=== PATIENT | male | born 1945 | race Caucasian/White ===

== ENCOUNTER 2020-05-12 13:18 | Emergency (ER) | payer MEDICARE, OTHER, SELFPAY ==
[2020-05-12] VITALS (14 sets, daily range): BP systolic 89–180; BP diastolic 58–118; PULSE 79–90; RESP 15–24; TEMP 36.5–37.2; O2SAT 83–98; BMI 36.8
--- NOTE | 2020-05-12 13:35 | XR_ITS ---
PROCEDURE: XR CHEST PORTABLE CLINICAL HISTORY: chf COMPARISON: No exams were available for comparison FINDINGS: The lung smith are well expanded. There is relative radiolucency right upper lung field when compared to the left upper lung field which may be due to bullous change. There is mild or borderline generalized cardiomegaly. There is prominence of the upper lobe vessels left lung. There is a somewhat hazy opacity at the right lung base which could be small amount of pleural fluid ascending in the major fissure. IMPRESSION: Borderline cardiomegaly with prominence of the upper lobe vessels left lung but curious bolus change versus hypoplasia of the right sided pulmonary vascularity. These findings could be due to early failure however consider follow-up CT scan chest in view the curious radiolucency and significant difference in the vascularity right lung versus left Dictated by: Dr. Dick Pérez MD 05/12/2020 14:14 Dr. Dick Pérez MD in [place] 05/12/2020 14:14
--- NOTE | 2020-05-12 13:36 | ECG_ITS ---
APPROVED REPORT Exam: Resting ECG HR:87 bpm ECG Measurements Heart Rate 87 AXES NE 190 P 87 QRSd 90 QRS 58 QT 406 T 47 QTc 488 Conclusion Sinus rhythm with fusion complexes Nonspecific ST and T wave abnormality Prolonged QT Abnormal ECG Electronically signed by : Bryn Varela, 05/12/2020 19:46:06
--- NOTE | 2020-05-12 13:37 | HMH.EDGENADL ---
ED Disposition Clinical Impression: Gallstone pancreatitis CHF exacerbation Qualifiers: Heart failure type: unspecified Qualified Code(s): I50.9 - Heart failure, unspecified Disposition: Xfer Short-Term Hosp Condition on Discharge: Good Referrals: Estrella Sandoval APRN [Primary Care Provider] - - Critical Care Critical Care Time: No Attestation: On 05/12/20, the high probability of a clinically significant, sudden or life threatening deterioration of the following system(s) required my full and direct attention, intervention and personal management. The time I documented below is in addition to time spent performing reported procedures but includes the following listed in this critical care notation. Medical Decision Making - Medical Records Medical records reviewed: Yes: I reviewed the patient's medical records. - Sarath Inquiry Pt receiving controlled substance: No Vital Signs: 05/12/20 13:31 05/12/20 13:57 05/12/20 14:19 Temperature 98.9 F Temperature Source Oral Pulse Rate [Right Radial] 87 85 85 Respiratory Rate 24 Blood Pressure [Right Arm] 162/95 H 119/90 145/87 H Blood Pressure Mean [Right Arm] 117 99 106 Blood Pressure Source [Right Arm] Automatic Cuff Automatic Cuff Blood Pressure Position [Right Arm] Sitting Sitting 02 Sat by Pulse Oximetry 83 L 92 L 96 Oxygen Delivery Method Room Air Room Air Oxygen Flow Rate (LPM) 05/12/20 14:47 05/12/20 15:00 05/12/20 15:30 Temperature Temperature Source Pulse Rate [Right Radial] 89 86 90 Respiratory Rate 23 22 Blood Pressure [Right Arm] 145/87 H 131/83 140/118 H Blood Pressure Mean [Right Arm] 106 99 125 Blood Pressure Source [Right Arm] Automatic Cuff Automatic Cuff Automatic Cuff Blood Pressure Position [Right Arm] Sitting Sitting Sitting 02 Sat by Pulse Oximetry 96 95 94 L Oxygen Delivery Method Nasal Cannula Room Air Room Air Oxygen Flow Rate (LPM) 2 05/12/20 16:26 05/12/20 16:30 05/12/20 17:00 Temperature Temperature Source Pulse Rate [Right Radial] 88 86 83 Respiratory Rate Blood Pressure [Right Arm] 180/85 H 180/85 H 138/83 Blood Pressure Mean [Right Arm] 116 116 101 Blood Pressure Source [Right Arm] Automatic Cuff Automatic Cuff Automatic Cuff Blood Pressure Position [Right Arm] Sitting Sitting Sitting 02 Sat by Pulse Oximetry 92 L 95 98 Oxygen Delivery Method Room Air Room Air Room Air Oxygen Flow Rate (LPM) 05/12/20 17:30 05/12/20 18:00 Temperature Temperature Source Pulse Rate [Right Radial] 84 84 Respiratory Rate Blood Pressure [Right Arm] 95/73 L 101/65 L Blood Pressure Mean [Right Arm] 80 77 Blood Pressure Source [Right Arm] Automatic Cuff Automatic Cuff Blood Pressure Position [Right Arm] Sitting Sitting 02 Sat by Pulse Oximetry 97 95 Oxygen Delivery Method CPAP CPAP Oxygen Flow Rate (LPM) - Lab Data Lab results reviewed: Yes: I reviewed the patient's lab results. Lab Results 05/12/20 13:30: WBC 15.1 H, RBC 5.98, Hgb 19.2 H*, Hct 59.0 H, MCV 99.2 H, MCH 32.1 H, MCHC 32.4, RDW 13.9, Plt Count 194, MPV 7.9, Neut % (Auto) 92.6 H, Lymph % (Auto) 3.7 L, [place] % (Auto) 2.8, Eos % (Auto) 0.7, Baso % (Auto) 0.1, Neut # (Auto) 14.0 H, Lymph # (Auto) 0.6 L, [place] # (Auto) 0.4, Eos # (Auto) 0.1, Baso # (Auto) 0.0, Total Counted 100, Neutrophils % (Manual) 90 H, Band Neutrophils % 3.0, Lymphocytes % (Manual) 6 L, Monocytes % (Manual) 1 L, Platelet Estimate Normal, RBC Morphology Normal 05/12/20 13:30: Sodium 141, Potassium 3.8, Chloride 98, Carbon Dioxide 33 H, Anion Gap 13.8, BUN 19, Creatinine 1.40 H, Estimated Creat Clear 72, Estimated GFR 50 L, Est GFR ( Amer) 60, Glucose 111 H, Calcium 8.8, Magnesium 2.1, Total Bilirubin 8.5 H, AST 264 H, ALT 166 H, Alkaline Phosphatase 208 H, Troponin I < 0.01, NT-Pro-B Natriuret Pep 258 H, Total Protein 8.6 H, Albumin 4.4, Globulin 4.2 H, Albumin/Globulin Ratio 1.0 L 05/12/20 13:30: PT 12.7 H, INR 1.16 H, APTT 26.7 05/12/20 13:33: SARS-CoV-2 IgG Ab
--- NOTE | 2020-05-12 13:38 | PC.NURSE ---
Respiratory at bedside
[2020-05-12 13:48] LABS: ABG Base Excess -0.4 mmol/L (-2.4-2.3); ABG Oxygen Saturation 93 % (90-100); ABG PH 7.43 mmol/L (7.35-7.45); ABG PO2 60.4 mmhg (80-100); ABG TCO2 25.1 mmhg (23-27)
[2020-05-12 13:49] LABS: Oxygen 4LPM %
[2020-05-12 13:50] LABS: Allen's Test ACCEPTABLE; Source L RADIAL
[2020-05-12 13:53] LABS: Chloride 98 mmol/L (98-107); Potassium 3.8 mmoL/L (3.5-5.1); Sodium 141 mmol/L (136-145)
[2020-05-12 13:56] LABS: Alanine Aminotransferase 166 U/L (12-78); Albumin Level 4.4 g/dl (3.5-5.0); Alkaline Phosphatase 208 U/L (38-126); Anion Gap 13.8 mEq/L (5-15); Aspartate Amino Transferase 264 U/L (17-59); Bilirubin,Total 8.5 mg/dl (0.2-1.3); Blood Urea Nitrogen 19 mg/dl (9-20); Calcium 8.8 mg/dl (8.4-10.2); Carbon Dioxide 33 mmol/L (22.0-30.0); Creatinine Clearance Estimated 72 mL/min (50-200); Estimated Glomerular Filt Rate 50 ml/min (>60); GFR (African American) 60 ML/MIN (>60); Globulin 4.2 g/dL (1.3-3.2); Glucose 111 mg/dl (74-100); Total Protein,Serum 8.6 g/dl (6.3-8.2)
--- NOTE | 2020-05-12 13:56 | PC.NURSE ---
rad at bedside
[2020-05-12 13:57] LABS: Basophils % 0.1 % (0.1-2.0); Eosinophils # 0.1 K/mm3 (0.0-0.4); Eosinophils % 0.7 % (0.1-12.0); Lymphocytes # 0.6 K/mm3 (0.7-4.5); Lymphocytes % 3.7 % (10-50); Magnesium 2.1 mg/dl (1.6-2.3); Mean Corpuscular HGB Conc 32.4 g/dL (31.8-35.4); Mean Corpuscular Hemoglobin 32.1 pg (27.0-31.2); Mean Corpuscular Volume 99.2 fl (80-94); Mean Platelet Volume 7.9 fl (7.4-10.4); Monocytes # 0.4 K/mm3 (0.1-1.0); Monocytes % 2.8 % (1.7-9.3); Neutrophils % 92.6 % (37.0-80.0); Platelet Count 194 K/mm3 (142-424); Red Blood Count 5.98 M/mm3 (4.60-6.20); Red Cell Distribution Width 13.9 % (11.5-17.5); White Blood Count 15.1 K/mm3 (4.8-10.8)
[2020-05-12 14:00] LABS: Hemoglobin 19.2 g/dL (14.1-18.0)
[2020-05-12 14:03] LABS: MANUAL DIFFERENTIAL MANUAL DIFFERENTIAL (MANUAL DIFF)
[2020-05-12 14:04] LABS: Activated Partial Thrombo Time 26.7 seconds (23.6-34.0); INR 1.16 (0.9-1.1); Prothrombin Time 12.7 seconds (9.4-11.8)
[2020-05-12 14:06] LABS: NT Pro Brain Natriuretic Pep. 258 pg/mL (0-125)
[2020-05-12 14:14] LABS: Lymphocytes % 6 % (10-50); Monocytes % 1 % (2-9); Neutrophils % 90 % (42-76); Platelet Estimate Normal; RBC Morphology Normal; Total Cells Counted 100
[2020-05-12 14:23] LABS: Troponin I < 0.01 ng/ml (0.00-0.034)
--- NOTE | 2020-05-12 14:47 | ECG_ITS ---
APPROVED REPORT Exam: Resting ECG HR:89 bpm ECG Measurements Heart Rate 89 AXES SC 230 P 90 QRSd 90 QRS 80 QT 366 T 70 QTc 445 Conclusion Sinus rhythm with 1st degree AV block Nonspecific ST abnormality Abnormal ECG Electronically signed by : Bryn Varela, 05/12/2020 19:45:58
--- NOTE | 2020-05-12 14:47 | PC.NURSE ---
Pt urinated approx 100ml dark urine.
--- NOTE | 2020-05-12 14:53 | CT_ITS ---
PROCEDURE: CT ABDOMEN PELVIS WO CON CLINICAL INDICATION: abdominal distention COMPARISON: No exams were available for comparison TECHNIQUE: Axial images obtained with sagittal and coronal reformats. All CT scans at the facility use one or more dose reduction, viz: automated exposure control, ma/kV adjustment per patient size (including targeted exams where dose is matched to indication, i.e. head), or iterative reconstruction technique. FINDINGS: LOWER THORAX: Atelectatic changes are present in the right lung base with air bronchograms. Cannot exclude superimposed pneumonia. Parenchymal opacity noted in the left lower lobe posteriorly may be due to atelectasis. Recommend follow-up to exclude developing nodules and or pneumonia.. ABDOMEN & PELVIS: The liver and spleen have an unremarkable appearance. The gallbladder is distended with some hyperdensity along the posterior aspect of the gallbladder may be due to small stones and/or sludge. There is some mild stranding of the peripancreatic fat suggesting mild pancreatitis. I so density is present in the pancreatic head and could be due to some mild edematous changes. Neoplastic process is not excluded and follow-up is suggested. There are multiple small hyperdensities along the wall of the transverse duodenum possibly due to ingested medication. There is bilateral renal atrophy. No evidence of renal or ureteral calculi. There is a small umbilical hernia containing fat. No evidence of appendicitis. There is a mild amount of retained colonic feces. Increased soft tissue density is present along the posterior aspect the urinary bladder slightly eccentric toward the right contiguous with the prostate consistent with enlarged prostate. Neoplasm is not excluded. There are mild osteoarthritic changes of the hips. Degenerative disc disease L3-L4 L4-5 and L5-S1. Mild ectasia of the lower abdominal aorta at 2.6 cm. IMPRESSION: 1. Right lower lobe atelectasis with consolidation with left lower lobe atelectatic change. Recommend follow-up to exclude developing nodules on the left. 2. Distended gallbladder with suspected stones and/or sludge. 3. Mild stranding of the peripancreatic fat and I so density in the pancreatic head consistent with pancreatitis. Suggest nonemergent follow-up of the pancreas with out and with contrast with pancreatic protocol to exclude the possibility of a lesion in the head of the pancreas. 4. Enlarged prostate with nodular contour anteriorly which could be due to hypertrophy or neoplasm Dictated by: Timoteo Kessler MD 05/12/2020 16:22 Timoteo Kessler MD in [place] 05/12/2020 16:22
--- NOTE | 2020-05-12 16:45 | PC.NURSE ---
spoke with [facility] for home medication clarification. see home med list.
--- NOTE | 2020-05-12 16:47 | PC.NURSE ---
notified dr solano that patient meets criteria for severe sepsis. awaiting further orders.
[2020-05-12 17:10] LABS: Troponin I < 0.01 ng/ml (0.00-0.034)
--- NOTE | 2020-05-12 18:00 | PC.NURSE ---
consulted with dr solano if he wants nursing staff to order blood cultures and lactic acid to patient due to lab findings and severe sepsis criteria met. dr solano says not at this time.
[2020-05-12 18:05] LABS: Lipase 11718 U/L (23-300)
--- NOTE | 2020-05-12 18:09 | PC.NURSE ---
Dr Dee consults with Dr Winchester concerning admit. dr Winchester states that he does not feel the patient is appropriate for admit here at [facility]. Dr gamez to seek out other facilities for higher level of care.
--- NOTE | 2020-05-12 18:10 | PC.NURSE ---
Per Dr. Winchester we do not preform ERCP's and wants the pt transferred.
--- NOTE | 2020-05-12 18:11 | PC.NURSE ---
Calling [facility] at this time.
--- NOTE | 2020-05-12 18:20 | PC.NURSE ---
Dr Dee speaking with Dr. Soliman at this time.
--- NOTE | 2020-05-12 18:21 | PC.NURSE ---
Dr. Soliman has accepted pt. Dr Soliman is accepting through [facility].
[2020-05-12 18:29] LABS: Coronavirus 19 IgG Antibody Negative (Negative); Coronavirus 19 IgM Antibody Negative (Negative)
--- NOTE | 2020-05-12 18:43 | PC.NURSE ---
[facility] aware of transfer.
--- NOTE | 2020-05-12 18:45 | PC.NURSE ---
RT at bedside taking pt off of bipap
== END 2020-05-12 19:35 | disposition short-term general hospital (02) ==
PROVIDERS: Emergency Provider Physician Assistant; PCP Nurse Practitioner Family
DX: K85.10 Biliary acute pancreatitis without necrosis or infection (principal); J44.9 Chronic obstructive pulmonary disease, unspecified; I50.9 Heart failure, unspecified; I10 Essential (primary) hypertension; Z01.84 Encounter for antibody response examination; Z79.899 Other long term (current) drug therapy
CPT/HCPCS: 71045; 74176; 80053; 82803; 83690; 83735; 83880; 84484; 85007; 85025; 85610; 85730; 86328; 93005; 96374; 99284

== ENCOUNTER 2021-07-30 11:52 | Observation (INO) | payer MEDICARE, OTHER, SELFPAY ==
[2021-07-30] VITALS (15 sets, daily range): BP systolic 100–134; BP diastolic 50–68; PULSE 75–84; RESP 16–20; TEMP 36.4–37.7; O2SAT 90–96; BMI 36.0; BMI 34.7
--- NOTE | 2021-07-30 12:03 | XR_ITS ---
FINAL REPORT CLINICAL HISTORY: SOA COMPARISON: 05/12/2020 FINDINGS: SINGLE VIEW CHEST The heart is normal in size. The mediastinum is unremarkable. There is patchy airspace opacity at the right base which is increased since previous, probably due to acute pneumonia. There is bibasilar atelectasis. There is no pneumothorax. IMPRESSION: Probable right base pneumonia with bibasilar atelectasis. Reviewed, Interpreted and Dictated by José Miguel Casillas MD Transcribed by Debbie Dudley Authenticated by José Miguel Casillas MD on 07/30/2021 01:19:35 PM [facility]
[2021-07-30 12:13] LABS: Basophils % 0.2 % (0.1-2.0); Eosinophils # 0.1 K/mm3 (0.0-0.4); Eosinophils % 0.6 % (0.1-12.0); Hematocrit 37.1 % (42.0-52.0); Hemoglobin 11.9 g/dL (14.1-18.0); Lymphocytes # 0.5 K/mm3 (0.7-4.5); Lymphocytes % 3.6 % (10-50); Mean Corpuscular HGB Conc 32.1 g/dL (31.8-35.4); Mean Corpuscular Hemoglobin 31.8 pg (27.0-31.2); Mean Platelet Volume 7.6 fl (7.4-10.4); Monocytes # 0.9 K/mm3 (0.1-1.0); Monocytes % 6.6 % (1.7-9.3); Neutrophils # 11.4 K/mm3 (1.8-7.8); Neutrophils % 88.9 % (37.0-80.0); Platelet Count 349 K/mm3 (142-424); Red Blood Count 3.75 M/mm3 (4.60-6.20); Red Cell Distribution Width 14.3 % (11.5-17.5); White Blood Count 12.8 K/mm3 (4.8-10.8)
[2021-07-30 12:15] LABS: Chloride 103 mmol/L (98-107); Sodium 137 mmol/L (136-145)
[2021-07-30 12:16] LABS: Potassium 4.1 mmoL/L (3.5-5.1)
[2021-07-30 12:18] LABS: Alanine Aminotransferase 15 U/L (12-78); Albumin Level 3.3 g/dl (3.5-5.0); Alkaline Phosphatase 96 U/L (38-126); Anion Gap 8.1 mEq/L (5-15); Aspartate Amino Transferase 20 U/L (17-59); Bilirubin,Total 0.7 mg/dl (0.2-1.3); Blood Urea Nitrogen 19 mg/dl (9-20); Carbon Dioxide 30 mmol/L (22.0-30.0); Creatinine Clearance Estimated 87 mL/min (50-200); Estimated Glomerular Filt Rate 65 ml/min (>60); GFR (African American) 79 ML/MIN (>60); Globulin 3.3 g/dL (1.3-3.2); MANUAL DIFFERENTIAL MANUAL DIFFERENTIAL (MANUAL DIFF); Total Protein,Serum 6.6 g/dl (6.3-8.2)
[2021-07-30 12:19] LABS: Calcium 7.9 mg/dl (8.4-10.2); Glucose 123 mg/dl (74-100)
[2021-07-30 12:20] LABS: Lactic Acid 1.2 mmol/L (0.7-2.1)
[2021-07-30 12:40] LABS: Eosinophils % 1 % (0-3); Lymphocytes % 8 % (10-50); Monocytes % 6 % (2-9); Neutrophils % 85 % (42-76); Total Cells Counted 100
[2021-07-30 12:41] LABS: Anisocytosis 1+; Platelet Estimate Normal
--- NOTE | 2021-07-30 13:22 | PC.NURSE ---
covid swab sent to lab
[2021-07-30 13:24] LABS: Coronavirus 19, PCR Not Detected (NotDetected); Influenza A, PCR Not Detected (NotDetected); Influenza B, PCR Not Detected (NotDetected)
--- NOTE | 2021-07-30 14:30 | PC.NURSE ---
asked ER MD if he would want to start IV antibiotics on pt r/t chest xray reading, ER MD states he wants to wait until CTA chest is back before starting antibiotics
--- NOTE | 2021-07-30 14:37 | CT_ITS ---
FINAL REPORT TECHNIQUE: Postcontrast axial images of the chest were performed in a CTA protocol. The study was performed with techniques to keep radiation dose as low as reasonably achievable, (ALARA). Individual dose reduction techniques using automated exposure control or adjustment of mA and/or kV according to the patient's size were employed. CLINICAL HISTORY: soa FINDINGS: The heart is normal in size. No adenopathy is identified. No pleural or pericardial effusion is identified. The thoracic aorta is normal in caliber with no focal aneurysm or dissection identified. There are moderate changes of centrilobular emphysema. There is patchy airspace opacity in the posterior right upper lobe, right middle lobe, and both lower lobes consistent with acute pneumonia. There is a nodule in the anterior right upper lobe measuring 11 mm which is nonspecific. Finding is well-seen on image 58 of series 5. The images of the upper abdomen are unremarkable. IMPRESSION: No evidence of pulmonary embolism or dissection. Indeterminate right upper lobe nodule as above. Follow-up CT is recommended following resolution of acute pneumonia to better characterize. Reviewed, Interpreted and Dictated by José Miguel Casillas MD Transcribed by Debbie Dudley Authenticated by José Miguel Casillas MD on 07/30/2021 03:59:47 PM [facility]
--- NOTE | 2021-07-30 14:45 | HMH.EDGENADL ---
ED Disposition Clinical Impression: Healthcare-associated pneumonia, Acute urinary retention Respiratory failure with hypoxia Qualifiers: Chronicity: acute Qualified Code(s): J96.01 - Acute respiratory failure with hypoxia Disposition: Admitted As Inpatient Condition on Discharge: Serious - Critical Care Critical Care Time: Yes Attestation: On 07/30/21, the high probability of a clinically significant, sudden or life threatening deterioration of the following system(s) required my full and direct attention, intervention and personal management. The time I documented below is in addition to time spent performing reported procedures but includes the following listed in this critical care notation. Total Critical Care Time: 40 Vital system(s) involved:: Respiratory Failure My critical care processes included: Assessment & monitoring of V/S, Initial and Re-exams, Data Review/Interpretation, Coordinating Care, Medication Orders and management, Documentation Medical Decision Making - Sarath Inquiry Pt receiving controlled substance: No Vital Signs: 07/30/21 11:52 07/30/21 13:30 07/30/21 14:00 Temperature 100 F H Temperature Source Oral Pulse Rate 84 Pulse Rate [Right Radial] 81 Respiratory Rate 20 18 Blood Pressure 117/68 100/68 L Blood Pressure [Right Arm] 100/63 L Blood Pressure Mean 85 77 Blood Pressure Mean [Right Arm] 75 Blood Pressure Source [Right Arm] Automatic Cuff Blood Pressure Position [Right Arm] Sitting 02 Sat by Pulse Oximetry 93 L 95 93 L Oxygen Delivery Method Nasal Cannula Nasal Cannula Nasal Cannula Oxygen Flow Rate (LPM) 3 2 3 07/30/21 14:24 07/30/21 16:11 07/30/21 16:16 Temperature 99.9 F H Temperature Source Pulse Rate 79 83 Pulse Rate [Right Radial] Respiratory Rate 18 18 Blood Pressure 105/61 L 113/56 L Blood Pressure [Right Arm] Blood Pressure Mean 82 77 Blood Pressure Mean [Right Arm] Blood Pressure Source [Right Arm] Blood Pressure Position [Right Arm] 02 Sat by Pulse Oximetry 94 L 90 L 93 L Oxygen Delivery Method Nasal Cannula Nasal Cannula Nasal Cannula Oxygen Flow Rate (LPM) 3 3 3 07/30/21 16:31 07/30/21 17:01 07/30/21 17:31 Temperature Temperature Source Pulse Rate 80 77 79 Pulse Rate [Right Radial] Respiratory Rate 18 18 18 Blood Pressure 104/55 L 102/62 L 102/59 L Blood Pressure [Right Arm] Blood Pressure Mean 71 72 68 Blood Pressure Mean [Right Arm] Blood Pressure Source [Right Arm] Blood Pressure Position [Right Arm] 02 Sat by Pulse Oximetry 93 L 96 95 Oxygen Delivery Method Nasal Cannula Nasal Cannula Nasal Cannula Oxygen Flow Rate (LPM) 3 3 3 07/30/21 18:23 Temperature Temperature Source Pulse Rate Pulse Rate [Right Radial] Respiratory Rate Blood Pressure Blood Pressure [Right Arm] Blood Pressure Mean Blood Pressure Mean [Right Arm] Blood Pressure Source [Right Arm] Blood Pressure Position [Right Arm] 02 Sat by Pulse Oximetry Oxygen Delivery Method Nasal Cannula Oxygen Flow Rate (LPM) - Lab Data Lab Results 07/30/21 11:53: Troponin I < 0.01, NT-Pro-B Natriuret Pep 213 H 07/30/21 11:55: WBC 12.8 H, RBC 3.75 L, Hgb 11.9 L, Hct 37.1 L, MCV 99.0 H, MCH 31.8 H, MCHC 32.1, RDW 14.3, Plt Count 349, MPV 7.6, Neut % (Auto) 88.9 H, Lymph % (Auto) 3.6 L, [place] % (Auto) 6.6, Eos % (Auto) 0.6, Baso % (Auto) 0.2, Neut # (Auto) 11.4 H, Lymph # (Auto) 0.5 L, [place] # (Auto) 0.9, Eos # (Auto) 0.1, Baso # (Auto) 0.0, Total Counted 100, Neutrophils % (Manual) 85 H, Lymphocytes % (Manual) 8 L, Monocytes % (Manual) 6, Eosinophils % (Manual) 1, Platelet Estimate Normal, Anisocytosis 1+ 07/30/21 11:55: Sodium 137, Potassium 4.1, Chloride 103, Carbon Dioxide 30, Anion Gap 8.1, BUN 19, Creatinine 1.10, Estimated Creat Clear 87, Estimated GFR 65, Est GFR ( Amer) 79, Glucose 123 H, Calcium 7.9 L, Total Bilirubin 0.7, AST 20, ALT 15, Alkaline Phosphatase 96, Total Protein 6.6, Albumin 3.3 L, Globul
--- NOTE | 2021-07-30 14:58 | PC.NURSE ---
PT GONE TO CT
--- NOTE | 2021-07-30 14:59 | PC.NURSE ---
Patient to radiology with RAD techs
--- NOTE | 2021-07-30 15:00 | PC.NURSE ---
pt was incontinent of urine in the bed, bed changed pt in a gown will continue to monitor
[2021-07-30 15:02] LABS: Microscopic, Urine URINE MICROSCOPIC (MICROSCOPIC)
[2021-07-30 15:06] LABS: Appearance,Urine TURBID (Clear); Blood, Urine 3+ (Negative); Color,Urine BROWN (Yellow); Glucose,Urine (UA) Negative (Negative); Ketones,Urine Negative (Negative); Leukocyte Esterase,Urine 1+ (Negative); Nitrate,Urine Negative (Negative); PH,Urine 7.5 (5.0-8.5); Protein,Urine 2+ (Negative)
[2021-07-30 15:16] LABS: Bilirubin,Urine 2+ (Negative)
[2021-07-30 15:18] LABS: RBC,Urine TNTC #/hpf (0-3)
[2021-07-30 15:19] LABS: Bacteria,Urine 1+ /lpf
[2021-07-30 15:46] LABS: NT Pro Brain Natriuretic Pep. 213 pg/mL (0-125)
[2021-07-30 15:48] LABS: Troponin I < 0.01 ng/ml (0.00-0.034)
--- NOTE | 2021-07-30 16:14 | PC.NURSE ---
pt is now sitting in the recliner, pt urinated while on BSC. pt has call light within reach, pt states no needs will continue to monitor
--- NOTE | 2021-07-30 16:50 | ECG_ITS ---
APPROVED REPORT Exam: Resting ECG HR:78 bpm ECG Measurements Heart Rate 78 AXES QRSd 106 QRS 53 QT 320 T 30 QTc 353 Conclusion ATRIAL FIBRILLATION NONSPECIFIC T-WAVE ABNORMALITY ABNORMAL RHYTHM ECG UNCONFIRMED REPORT Electronically signed by : Bryn Varela MD 08/02/2021 17:30:47
--- NOTE | 2021-07-30 17:14 | ECG_ITS ---
APPROVED REPORT Exam: Resting ECG HR:77 bpm ECG Measurements Heart Rate 77 AXES ID 206 P 75 QRSd 98 QRS 64 QT 306 T 57 QTc 338 Conclusion SINUS RHYTHM NONSPECIFIC T-WAVE ABNORMALITY BORDERLINE ECG UNCONFIRMED REPORT Electronically signed by : Bryn Varela MD 08/02/2021 17:30:32
--- NOTE | 2021-07-30 17:18 | PC.NURSE ---
EKG redone and given to Dr. Staton
--- NOTE | 2021-07-30 17:28 | PC.NURSE ---
EULOGIO BERNAL spoke with Dr Shah who is agreeable for admission
--- NOTE | 2021-07-30 17:29 | PC.NURSE ---
notified live in housekeeper nanny of admission
--- NOTE | 2021-07-30 18:13 | PC.NURSE ---
attempted to call report on pt, receiving nurse is in with another pts family, states she will call me back
--- NOTE | 2021-07-30 18:22 | PC.NURSE ---
report called to antonieta campbell on second floor at this time, states she will send staff down to transport pt.
--- NOTE | 2021-07-30 18:42 | PC.NURSE ---
Patient going to second floor with [facility]
--- NOTE | 2021-07-30 20:55 | PC.NURSE ---
PHARMACY CONSULTED ON DOSING FOR VANCOMYCIN
[2021-07-31] VITALS: BP 103/53; PULSE 73; RESP 18; TEMP 37.2; O2SAT 95
[2021-07-31 04:00] VITALS: BP 103/54; PULSE 74; RESP 18; TEMP 36.7; O2SAT 97
[2021-07-31 05:00] VITALS: BMI 34.7
--- NOTE | 2021-07-31 05:38 | PC.NURSE ---
PT LUNGS DIMINISHED IN RIGHT LOWER BASE.PT WEARING A BIPAP THIS MORNING,BUT HAS HAD O2 PER N/C AT 3 LITER PRIOR TO THIS.PT HAS NOT VOIDED PER URINAL TONIGHT,HAS A BRIEF ON AND TOLD TECH TO WAIT UNTIL HE FINISHED AND SHE COULD CHANGE HIM.2+EDEMA IN LLE AND 1+ EDEMA IN RLL. IV CEFEPRIME HUNGING AT THIS TIME
[2021-07-31 06:07] VITALS: PULSE 75; O2SAT 91
[2021-07-31 07:19] LABS: Basophils % 0.2 % (0.1-2.0); Eosinophils # 0.2 K/mm3 (0.0-0.4); Hematocrit 32.2 % (42.0-52.0); Lymphocytes # 0.9 K/mm3 (0.7-4.5); Mean Corpuscular HGB Conc 32.4 g/dL (31.8-35.4); Mean Corpuscular Hemoglobin 31.6 pg (27.0-31.2); Mean Corpuscular Volume 97.5 fl (80-94); Mean Platelet Volume 7.7 fl (7.4-10.4); Monocytes # 0.9 K/mm3 (0.1-1.0); Monocytes % 8.9 % (1.7-9.3); Neutrophils # 7.8 K/mm3 (1.8-7.8); Neutrophils % 79.9 % (37.0-80.0); Platelet Count 328 K/mm3 (142-424); Red Cell Distribution Width 14.5 % (11.5-17.5); White Blood Count 9.8 K/mm3 (4.8-10.8)
[2021-07-31 07:47] LABS: Hemoglobin 10.5 g/dL (14.1-18.0)
[2021-07-31 07:57] LABS: Alanine Aminotransferase 9 U/L (12-78); Albumin Level 2.9 g/dl (3.5-5.0); Alkaline Phosphatase 80 U/L (38-126); Anion Gap 8.5 mEq/L (5-15); Aspartate Amino Transferase 19 U/L (17-59); Bilirubin,Total 1.1 mg/dl (0.2-1.3); Blood Urea Nitrogen 17 mg/dl (9-20); Calcium 7.8 mg/dl (8.4-10.2); Carbon Dioxide 30 mmol/L (22.0-30.0); Chloride 104 mmol/L (98-107); Creatinine Clearance Estimated 77 mL/min (50-200); Estimated Glomerular Filt Rate 59 ml/min (>60); GFR (African American) 72 ML/MIN (>60); Globulin 2.9 g/dL (1.3-3.2); Glucose 93 mg/dl (74-100); Magnesium 2.2 mg/dl (1.6-2.3); Potassium 3.5 mmoL/L (3.5-5.1); Sodium 139 mmol/L (136-145); Total Protein,Serum 5.8 g/dl (6.3-8.2)
[2021-07-31 08:00] VITALS: BP 102/47; PULSE 75; RESP 16; TEMP 36.8; O2SAT 95
--- NOTE | 2021-07-31 08:47 | HMH.PHAINT ---
verified pt home meds with fill hx from pharmacy
[2021-07-31 11:44] VITALS: BP 100/63; PULSE 76; RESP 16; TEMP 36.8; O2SAT 94
--- NOTE | 2021-07-31 11:46 | HMH.PHACONS ---
- Pharmacy Consult Date: 07/31/21 Time: 11:46 Referring provider: DR. BETHEA Reason for Consult:: VANCOMYCIN DOSING Allergies and ADEs:: Allergies Allergy/AdvReac Type Severity Reaction Status Date / Time Penicillins Allergy Verified 05/12/20 13:35 Home Medications:: Home Medications Medication Instructions Recorded Confirmed Type Amiodarone HCl [Amiodarone 200mg 200 mg PO DAILY 10/02/17 07/30/21 History Tab] Apixaban [Eliquis] 2.5 mg PO BID 10/02/17 07/31/21 History Aspirin [Aspirin 81mg EC Tab] 81 mg PO DAILY 10/02/17 07/30/21 History Fluticasone Furoate [Flonase 1 spray NS DAILY 10/02/17 07/30/21 History Sensimist] Furosemide [Furosemide 20mg Tab*] 60 mg PO DAILY 10/02/17 07/31/21 History Ipratropium/Albuterol Sulfate 1 puff IH QID PRN 10/02/17 07/31/21 History [Duoneb 3mL neb] Levocetirizine Dihydrochloride 5 mg PO DAILY 10/02/17 07/30/21 History Potassium Chloride [K-Tab ER 20 20 meq PO DAILY 10/02/17 07/30/21 History mEq] allopurinoL [Allopurinol 100mg 100 mg PO DAILY 10/02/17 07/30/21 History tablet] carvediloL [Carvedilol 3.125mg Tab] 3.125 mg PO BID 10/02/17 07/30/21 History Montelukast Sodium [Singulair 10mg 10 mg PO PM 05/12/20 07/30/21 History tablet] Atorvastatin Calcium [Lipitor 40mg 40 mg PO HS 07/30/21 07/30/21 History Tab] Bethanechol Chloride [Urecholine 25 mg PO TID 07/30/21 07/30/21 History 25mg Tablet] Fluticasone Propion/Salmeterol 1 puff INHALATION BID 07/30/21 07/30/21 History [Wixela 250-50 Inhub] Levothyroxine Sodium 25 mcg PO DAILY 07/30/21 07/30/21 History [Levothyroxine 25mcg (0.025mg) Tab] Height: 1.7 m Weight: 100.38 kg Laboratory Results:: Laboratory Results - last 24 hr 07/30/21 11:53: Troponin I < 0.01, NT-Pro-B Natriuret Pep 213 H 07/30/21 11:55: WBC 12.8 H, RBC 3.75 L, Hgb 11.9 L, Hct 37.1 L, MCV 99.0 H, MCH 31.8 H, MCHC 32.1, RDW 14.3, Plt Count 349, MPV 7.6, Neut % (Auto) 88.9 H, Lymph % (Auto) 3.6 L, [place] % (Auto) 6.6, Eos % (Auto) 0.6, Baso % (Auto) 0.2, Neut # (Auto) 11.4 H, Lymph # (Auto) 0.5 L, [place] # (Auto) 0.9, Eos # (Auto) 0.1, Baso # (Auto) 0.0, Total Counted 100, Neutrophils % (Manual) 85 H, Lymphocytes % (Manual) 8 L, Monocytes % (Manual) 6, Eosinophils % (Manual) 1, Platelet Estimate Normal, Anisocytosis 1+ 07/30/21 11:55: Sodium 137, Potassium 4.1, Chloride 103, Carbon Dioxide 30, Anion Gap 8.1, BUN 19, Creatinine 1.10, Estimated Creat Clear 87, Estimated GFR 65, Est GFR ( Amer) 79, Glucose 123 H, Calcium 7.9 L, Total Bilirubin 0.7, AST 20, ALT 15, Alkaline Phosphatase 96, Total Protein 6.6, Albumin 3.3 L, Globulin 3.3 H, Albumin/Globulin Ratio 1.0 L 07/30/21 11:55: Lactate 1.2 07/30/21 13:20: SARS-CoV-2 (PCR) Not detected, Influenza A Untype (PCR) Not detected, Influenza Type B (PCR) Not detected 07/30/21 15:00: Urine Color Brown, Urine Appearance Turbid, Urine pH 7.5, Ur Specific [place] 1.020, Urine Protein 2+, Urine Glucose (UA) Negative, Urine Ketones Negative, Urine Blood 3+, Urine Nitrate Negative, Urine Bilirubin 2+ A, Urine Urobilinogen 2.0, Ur Leukocyte Esterase 1+ A, Urine RBC Tntc, Urine WBC 5-10, Ur Squamous Epith Cells None, Urine Bacteria 1+ 07/31/21 06:58: WBC 9.8, RBC 3.30 L, Hgb 10.5 L D, Hct 32.2 L, MCV 97.5 H, MCH 31.6 H, MCHC 32.4, RDW 14.5, Plt Count 328, MPV 7.7, Neut % (Auto) 79.9, Lymph % (Auto) 9.0 L, [place] % (Auto) 8.9, Eos % (Auto) 2.0, Baso % (Auto) 0.2, Neut # (Auto) 7.8, Lymph # (Auto) 0.9, [place] # (Auto) 0.9, Eos # (Auto) 0.2, Baso # (Auto) 0.0 07/31/21 06:58: Sodium 139, Potassium 3.5, Chloride 104, Carbon Dioxide 30, Anion Gap 8.5, BUN 17, Creatinine 1.20, Estimated Creat Clear 77, Estimated GFR 59, Est GFR ( Amer) 72, Glucose 93 D, Calcium 7.8 L, Magnesium 2.2, Total Bilirubin 1.1, AST 19, ALT 9 L D, Alkaline Phosphatase 80, Total Protein 5.8 L, Albumin 2.9 L D, Globulin 2.9, Albumin/Globulin Ratio 1.0 L Medical History: Reports:: Arrhythmia, Atrial Fibrillation, Chronic Ob
--- NOTE | 2021-07-31 14:22 | HMH.HPDC ---
General - General Admission date:: 07/30/21 Discharge date: 07/31/21 *Admission Date: 07/30/21 *Chief complaint: SOA, increased O2 requirement. *History of present illness: Mr. Sandoval is a 76-year-old gentleman brought in by ambulance due to complaint of shortness of breath and urinary retention. Of note was recently admitted to [facility] on for abdominal distention and vomiting. Had an abdominal hernia that was incarcerated. Surgery performed. Developed worsening respiratory symptoms after discharge, was admitted for over a week per his report. Has also had difficulty with urinary retention since being admitted to the hospital. Required a catheter while he was at [facility]. On arrival to the ER he reports worsening shortness of breath. Having to use his oxygen continuously throughout the day. Normally on 3 L nasal cannula at home just at night. Also noted some increased cough, edema. He has been short of breath ever since released from the hospital. Particular has dyspnea on exertion. He says that he normally uses BiPAP at night with oxygen. He occasionally uses oxygen by nasal cannula, but says that he has been having to use it all the time since discharge from the hospital. He checks his pulse ox frequently at home and says that with exertion his pulse ox dropped into the low 80s. It will go up to 93 at rest. He says that he has had a chronic persistent cough. Denies fever or chest pain. He has some chronic swelling of his legs as well. On evaluation this morning states he is feeling much better. Tolerating 3 L nasal cannula without difficulty. In bedside chair eating breakfast. Did not sleep well with our BiPAP. Afebrile. No headache, nausea, vomiting, diarrhea. Voiding independently. Wearing a diaper this morning [facility] History I have reviewed the patient's past medical history: Yes Medical History: Reports:: Arrhythmia, Atrial Fibrillation, Chronic Obstructive Pulmonary Disease (COPD), Hyperlipidemia, Hypertension Denies:: Cancer, Diabetes Mellitus Type 1, Diabetes Mellitus Type 2, Internal Pacemaker, MRSA *Have you ever received a pneumonia vaccine?: No *Have you received a flu vaccine this season?: No Other Surgeries: Yes: No Previous Surgery, Hernia Repair. No: Pacemaker - *Social History Last grade of school completed: Some college Smoking Status: Former smoker Alcohol Intake: never *Occupational Status:: retired Housing: house Household Members: none *Travel in the last 8 weeks: None Family Hx:: Unable to obtain Review of Systems - Review of Systems Review of systems:: pertinent systems reviewed and negative unless documented below (14 point review of systems performed, pertinent positives and negatives as per HPI) Exam Vital signs and Labs for Last 24 Hours: Temp Pulse Resp BP Pulse Ox 98.2 F 76 16 100/63 L 94 L 07/31/21 11:44 07/31/21 11:44 07/31/21 11:44 07/31/21 11:44 07/31/21 11:44 Laboratory Results - last 24 hr 07/30/21 11:53: Troponin I < 0.01, NT-Pro-B Natriuret Pep 213 H 07/30/21 13:20: SARS-CoV-2 (PCR) Not detected, Influenza A Untype (PCR) Not detected, Influenza Type B (PCR) Not detected 07/30/21 15:00: Urine Color Brown, Urine Appearance Turbid, Urine pH 7.5, Ur Specific [place] 1.020, Urine Protein 2+, Urine Glucose (UA) Negative, Urine Ketones Negative, Urine Blood 3+, Urine Nitrate Negative, Urine Bilirubin 2+ A, Urine Urobilinogen 2.0, Ur Leukocyte Esterase 1+ A, Urine RBC Tntc, Urine WBC 5-10, Ur Squamous Epith Cells None, Urine Bacteria 1+ 07/31/21 06:58: WBC 9.8, RBC 3.30 L, Hgb 10.5 L D, Hct 32.2 L, MCV 97.5 H, MCH 31.6 H, MCHC 32.4, RDW 14.5, Plt Count 328, MPV 7.7, Neut % (Auto) 79.9, Lymph % (Auto) 9.0 L, [place] % (Auto) 8.9, Eos % (Auto) 2.0, Baso % (Auto) 0.2, Neut # (Auto) 7.8, Lymph # (Auto) 0.9, [place] # (Auto) 0.9, Eos # (Auto) 0.2, Baso # (Auto) 0.0 07/31/21 06:58: Sodium 139, Potassium 3.5, Chloride 104, Carbon Dioxide 30, Anion Gap 8.5, BUN 17, Cr
--- NOTE | 2021-07-31 14:27 | HMH.PHAVTE ---
[facility] Pharmacy VTE Monitoring - Patient Demographics Admission date: 07/31/21 Report Date: 07/31/21 Time: 14:27 Allergies/Adverse Reactions: Patient Allergies Penicillins Allergy (Verified 05/12/20 13:35) Height: 1.7 m Weight: 100.38 kg Patient Problems: Current Active Problems Healthcare-associated pneumonia (Acute) Respiratory failure with hypoxia (Acute) Acute urinary retention (Acute) - VTE Risk Labs: VTE Related Lab Results Hgb 10.5 g/dL (14.1-18.0) L D 07/31/21 06:58 Hct 32.2 % (42.0-52.0) L 07/31/21 06:58 Plt Count 328 K/mm3 (142-424) 07/31/21 06:58 BUN 17 mg/dl (9-20) 07/31/21 06:58 Creatinine 1.20 mg/dl (0.66-1.25) 07/31/21 06:58 Estimated Creat Clear 77 mL/min (50-200) 07/31/21 06:58 - Prophylaxis Types of VTE Prophylaxis: TEDS Knee High Location of Applied Device: Right Leg, Left Leg, Bilateral Lower Extremeties (VANESSA HOSE ORDERED)
--- NOTE | 2021-07-31 14:55 | HMH.HPDC ---
General - General Admission date:: 07/30/21 Discharge date: 07/31/21 *Admission Date: 07/30/21 *Chief complaint: soa, increased O2 requirement *History of present illness: Mr. Sandoval is a 76-year-old gentleman brought in by ambulance due to complaint of shortness of breath and urinary retention. Of note was recently admitted to [facility] on for abdominal distention and vomiting. Had an abdominal hernia that was incarcerated. Surgery performed. Developed worsening respiratory symptoms after discharge, was admitted for over a week per his report. Has also had difficulty with urinary retention since being admitted to the hospital. Required a catheter while he was at [facility]. On arrival to the ER he reports worsening shortness of breath. Having to use his oxygen continuously throughout the day. Normally on 3 L nasal cannula at home just at night. Also noted some increased cough, edema. He has been short of breath ever since released from the hospital. Particular has dyspnea on exertion. He says that he normally uses BiPAP at night with oxygen. He occasionally uses oxygen by nasal cannula, but says that he has been having to use it all the time since discharge from the hospital. He checks his pulse ox frequently at home and says that with exertion his pulse ox dropped into the low 80s. It will go up to 93 at rest. He says that he has had a chronic persistent cough. Denies fever or chest pain. He has some chronic swelling of his legs as well. On evaluation this morning states he is feeling much better. Tolerating 3 L nasal cannula without difficulty. In bedside chair eating breakfast. Did not sleep well with our BiPAP. Afebrile. No headache, nausea, vomiting, diarrhea. Voiding independently. Wearing a diaper this morning [facility] History I have reviewed the patient's past medical history: Yes Medical History: Reports:: Arrhythmia, Atrial Fibrillation, Chronic Obstructive Pulmonary Disease (COPD), Hyperlipidemia, Hypertension Denies:: Cancer, Diabetes Mellitus Type 1, Diabetes Mellitus Type 2, Internal Pacemaker, MRSA *Have you ever received a pneumonia vaccine?: No *Have you received a flu vaccine this season?: No Other Surgeries: Yes: No Previous Surgery, Hernia Repair. No: Pacemaker - *Social History Last grade of school completed: Some college Smoking Status: Former smoker Alcohol Intake: never *Occupational Status:: retired Housing: house Household Members: none *Travel in the last 8 weeks: None Family Hx:: Unable to obtain Review of Systems - Review of Systems Review of systems:: pertinent systems reviewed and negative unless documented below (14 point review of systems performed, pertinent positives and negatives as per HPI) Exam Vital signs and Labs for Last 24 Hours: Temp Pulse Resp BP Pulse Ox 98.2 F 76 16 100/63 L 94 L 07/31/21 11:44 07/31/21 11:44 07/31/21 11:44 07/31/21 11:44 07/31/21 11:44 Laboratory Results - last 24 hr 07/30/21 11:53: Troponin I < 0.01, NT-Pro-B Natriuret Pep 213 H 07/30/21 15:00: Urine Color Brown, Urine Appearance Turbid, Urine pH 7.5, Ur Specific [place] 1.020, Urine Protein 2+, Urine Glucose (UA) Negative, Urine Ketones Negative, Urine Blood 3+, Urine Nitrate Negative, Urine Bilirubin 2+ A, Urine Urobilinogen 2.0, Ur Leukocyte Esterase 1+ A, Urine RBC Tntc, Urine WBC 5-10, Ur Squamous Epith Cells None, Urine Bacteria 1+ 07/31/21 06:58: WBC 9.8, RBC 3.30 L, Hgb 10.5 L D, Hct 32.2 L, MCV 97.5 H, MCH 31.6 H, MCHC 32.4, RDW 14.5, Plt Count 328, MPV 7.7, Neut % (Auto) 79.9, Lymph % (Auto) 9.0 L, [place] % (Auto) 8.9, Eos % (Auto) 2.0, Baso % (Auto) 0.2, Neut # (Auto) 7.8, Lymph # (Auto) 0.9, [place] # (Auto) 0.9, Eos # (Auto) 0.2, Baso # (Auto) 0.0 07/31/21 06:58: Sodium 139, Potassium 3.5, Chloride 104, Carbon Dioxide 30, Anion Gap 8.5, BUN 17, Creatinine 1.20, Estimated Creat Clear 77, Estimated GFR 59, Est GFR ( Amer) 72, Glucose 93 D, Calcium 7.8 L, [place]
== END 2021-07-31 13:10 | disposition home or self-care (01) ==
LOC: ER 17:31 → 2ND 17:50
PROVIDERS: Admitting Provider Internal Medicine Adolescent Medicine; Emergency Provider Emergency Medicine; PCP Nurse Practitioner Family; Visit Provider Internal Medicine Adolescent Medicine
DX: J18.9 Pneumonia, unspecified organism (principal); Y95 Nosocomial condition; Z79.01 Long term (current) use of anticoagulants; Z79.899 Other long term (current) drug therapy; I48.20 Chronic atrial fibrillation, unspecified; J96.01 Acute respiratory failure with hypoxia; I50.9 Heart failure, unspecified; I11.0 Hypertensive heart disease with heart failure; E78.5 Hyperlipidemia, unspecified; J44.9 Chronic obstructive pulmonary disease, unspecified; Z99.81 Dependence on supplemental oxygen; Z20.822 Contact with and (suspected) exposure to COVID-19
CPT/HCPCS: G0378; 71045; 71275; 80053; 81001; 83605; 83735; 83880; 84484; 85007; 85025; 87040; 87086; 87088; 87186; 93005; 94640; 94660; 94760; 94761; 96365; 99285; C9803; J1956; Q9967; U0003; U0005

== ENCOUNTER 2021-08-07 14:34 | Emergency (ER) | payer MEDICARE, OTHER, SELFPAY ==
[2021-08-07 14:56] VITALS: BP 134/78; PULSE 72; RESP 17; TEMP 36.9; O2SAT 90; BMI 34.2
[2021-08-07 15:00] VITALS: BP 96/65; PULSE 82; O2SAT 93
[2021-08-07 16:00] VITALS: BP 110/67; PULSE 67; RESP 15; O2SAT 95
[2021-08-07 16:05] LABS: Microscopic, Urine URINE MICROSCOPIC (MICROSCOPIC)
--- NOTE | 2021-08-07 16:11 | HMH.EDGENADL ---
ED Disposition Clinical Impression: Urinary retention UTI (urinary tract infection) Qualifiers: Urinary tract infection type: acute cystitis Hematuria presence: with hematuria Qualified Code(s): N30.01 - Acute cystitis with hematuria Disposition: Home, Self-Care Condition on Discharge: Good Instructions: DI for Urinary Tract Infection (UTI), DI for Urinary Tract Infection in Children Prescriptions: Cefdinir [Omnicef 300mg Capsule] 300 mg PO BID #20 cap Transmission Status: Pending to [id number] Referrals: Estrella Sandoval APRN [Primary Care Provider] - - Critical Care Critical Care Time: No Attestation: On 08/07/21, the high probability of a clinically significant, sudden or life threatening deterioration of the following system(s) required my full and direct attention, intervention and personal management. The time I documented below is in addition to time spent performing reported procedures but includes the following listed in this critical care notation. Medical Decision Making - Medical Records Medical records reviewed: Yes: I reviewed the patient's medical records. - Sarath Inquiry Pt receiving controlled substance: No Vital Signs: 08/07/21 14:56 08/07/21 15:00 Temperature 98.4 F Temperature Source Oral Pulse Rate 82 Pulse Rate [Left Radial] 72 Respiratory Rate 17 Blood Pressure 96/65 L Blood Pressure [Right Arm] 134/78 Blood Pressure Mean 73 Blood Pressure Mean [Right Arm] 96 02 Sat by Pulse Oximetry 90 L 93 L Oxygen Delivery Method Room Air - Lab Data Lab Results 08/07/21 15:35: Urine Color Red, Urine Appearance Cloudy, Urine pH 7.0, Ur Specific [place] 1.020, Urine Protein 3+, Urine Glucose (UA) Negative, Urine Ketones 1+, Urine Blood 3+, Urine Nitrate Positive, Urine Bilirubin Negative, Urine Urobilinogen >=8.0, Ur Leukocyte Esterase 2+ A, Urine RBC Tntc, Urine WBC 50-100, Ur Squamous Epith Cells None, Urine Bacteria 2+ Orders (Tests/Meds): ORDERS Category Date Time Status Urine Culture Stat Micro 08/07/21 15:35 Received Medical Decision Narrative: Patient is a 76-year-old male who presents the ED today for further evaluation of difficulty with urinating. Patient with a history of recent hematuria, recent operation, and restarting his Eliquis is at risk for blood clots blocking the bladder, also having BPH, with acute urinary retention from anesthetic and usage. Either way patient needs a Faye catheter, as he has not peed in over 12 hours at this point, we are concerned for acute urinary retention. Patient has a urologist that [facility], and we will need him to follow-up with either him or our urologist for which I will provide a referral. We will also send a urinalysis for further evaluation of urinary tract infection as this could be a source of obstruction. Documented urinary tract infection with bacteria and elevated leukocytes, patient is having persistent hematuria, however tubing is not clotting up, will give a leg bag, talk to patient's family numbers will be able to take care of him about maintenance of his Faye catheter at home. Have prescribed cefdinir for the patient to take at home twice a day, patient has a documented penicillin allergy, however this was to penicillin G that he had as a child, states he has not had any allergic reaction that he is aware of to penicillins in the last couple of years. Given the patient has never had anaphylactic reaction, and his allergy was to a penicillin on a cephalosporin believe cephalosporins are likely to be safe, given return precautions for allergic reaction and patient is verbalized understanding with plan. I have stressed the importance of follow-up with urology as he'll be leaving his Faye catheter in place. General Adult HPI - General Chief complaint: Urogenital-Male Stated complaint: Blood for Unine Time Seen by Provider: 08/07/21 14:51 Mode of Arrival: Ambulatory Limitation
[2021-08-07 16:12] LABS: Appearance,Urine CLOUDY (Clear); Bilirubin,Urine Negative (Negative); Blood, Urine 3+ (Negative); Color,Urine RED (Yellow); Glucose,Urine (UA) Negative (Negative); Ketones,Urine 1+ (Negative); Leukocyte Esterase,Urine 2+ (Negative); Nitrate,Urine POSITIVE (Negative); Protein,Urine 3+ (Negative); Urobilinogen,Urine >=8.0 EU/dl (0.2)
[2021-08-07 16:23] LABS: Bacteria,Urine 2+ /lpf; RBC,Urine TNTC #/hpf (0-3); WBC,Urine 50-100 #/hpf (0-3)
[2021-08-07 16:30] VITALS: BP 102/64; PULSE 65; RESP 16; O2SAT 95
[2021-08-07 17:00] VITALS: BP 100/55; PULSE 69; RESP 15; O2SAT 96
[2021-08-07 18:03] VITALS: BP 100/55; PULSE 69; RESP 15; TEMP 36.9; O2SAT 96
== END 2021-08-07 18:05 | disposition home or self-care (01) ==
PROVIDERS: Emergency Provider Student in an Organized Health Care Education/Training Program; PCP Nurse Practitioner Family
DX: N30.01 Acute cystitis with hematuria (principal); I48.0 Paroxysmal atrial fibrillation; J44.9 Chronic obstructive pulmonary disease, unspecified; Z87.891 Personal history of nicotine dependence
CPT/HCPCS: 51702; 81001; 87086; 99282; 99283

== ENCOUNTER 2021-08-17 15:15 | Emergency (ER) | payer MEDICARE, OTHER, SELFPAY ==
[2021-08-17 15:16] VITALS: BP 109/57; PULSE 72; RESP 20; TEMP 36.4; O2SAT 98; BMI 34.0
--- NOTE | 2021-08-17 15:32 | ECG_ITS ---
APPROVED REPORT Exam: Resting ECG HR:72 bpm ECG Measurements Heart Rate 72 AXES RI 178 P -2 QRSd 102 QRS 84 QT 324 T 66 QTc 349 Conclusion SINUS RHYTHM LOW QRS VOLTAGE [QRS DEFLECTION < 0.5/1.0 mV IN LIMB/CHEST LEADS] NONSPECIFIC ST & T-WAVE ABNORMALITY ABNORMAL ECG UNCONFIRMED REPORT Electronically signed by : Bryn Varela MD 08/18/2021 21:01:50
--- NOTE | 2021-08-17 15:35 | HMH.EDGENADL ---
ED Disposition Clinical Impression: Peripheral edema Disposition: Home, Self-Care Condition on Discharge: Fair Additional Instructions: Call your primary care provider tomorrow for further care and follow-up. Return to the emergency department if unable to urinate. Referrals: Estrella Sandoval APRN [Primary Care Provider] - - Critical Care Critical Care Time: No Attestation: On 08/17/21, the high probability of a clinically significant, sudden or life threatening deterioration of the following system(s) required my full and direct attention, intervention and personal management. The time I documented below is in addition to time spent performing reported procedures but includes the following listed in this critical care notation. Medical Decision Making - Sarath Inquiry Pt receiving controlled substance: No Vital Signs: 08/17/21 15:16 08/17/21 16:12 08/17/21 17:30 Temperature 97.6 F Temperature Source Oral Pulse Rate 65 70 Pulse Rate [Left Radial] 72 Respiratory Rate 20 Blood Pressure 104/64 L 104/61 L Blood Pressure [Right Arm] 109/57 L Blood Pressure Mean [Right Arm] 74 Blood Pressure Source [Right Arm] Automatic Cuff Blood Pressure Position [Right Arm] Sitting 02 Sat by Pulse Oximetry 98 97 96 Oxygen Delivery Method Room Air Room Air Room Air - Lab Data Lab Results 08/17/21 15:45: WBC 7.6, RBC 3.06 L, Hgb 9.5 L, Hct 29.9 L, MCV 97.9 H, MCH 31.1, MCHC 31.8, RDW 14.8, Plt Count 266, MPV 7.2 L, Neut % (Auto) 78.7, Lymph % (Auto) 12.0, [place] % (Auto) 6.8, Eos % (Auto) 2.0, Baso % (Auto) 0.5, Neut # (Auto) 6.0, Lymph # (Auto) 0.9, [place] # (Auto) 0.5, Eos # (Auto) 0.2, Baso # (Auto) 0.0 08/17/21 15:45: Sodium 136, Potassium 3.8, Chloride 102, Carbon Dioxide 32 H, Anion Gap 5.8, BUN 15, Creatinine 1.00, Estimated Creat Clear 90, Estimated GFR 73, Est GFR ( Amer) 88, Glucose 126 H, Calcium 7.6 L, Total Bilirubin 0.5, AST 23, ALT 15, Alkaline Phosphatase 91, Troponin I < 0.01, NT-Pro-B Natriuret Pep 106, Total Protein 5.7 L, Albumin 3.2 L, Globulin 2.5, Albumin/Globulin Ratio 1.3 Result diagrams: 08/17/21 15:45 08/17/21 15:45 Orders (Tests/Meds): ED MEDICATIONS Generic Name Dose Route Start Last Admin Trade Name Freq PRN Reason Stop Dose Admin Sodium Chloride 10 ml 08/17/21 16:08 Sodium Chloride 0.9% 10ml Flush Syringe IV 09/16/21 16:07 NEEDED PRN Maintain IV Site Discontinued Medications Generic Name Dose Route Start Last Admin Trade Name Freq PRN Reason Stop Dose Admin Furosemide 80 mg 08/17/21 16:40 08/17/21 16:55 Furosemide 40mg/4ml Vial IV 08/17/21 16:41 80 mg ONCE ONE Administration ORDERS Category Date Time Status Troponin I Q3H Lab 08/17/21 19:15 Ordered Troponin I Q3H Lab 08/17/21 22:15 Ordered - Radiology Data #1 Image(s): Chest Image Reviewed: Yes I have reviewed radiologist's interpretation Procedure(s): XR chest portable Accession Number(s): [id number] cc: Estrella Sandoval APRN; Jeff Garcia MD~ FINAL REPORT CLINICAL HISTORY: soa, chf COMPARISON: July 30, 2021 FINDINGS: The heart size is normal. The mediastinum is normal. There are persistent bibasilar opacities. There is partial improved aeration of the right lung base. There are no pleural effusions. There is no pneumothorax. There is no osseous abnormality. IMPRESSION: Persistent bibasilar opacities could represent atelectasis or pneumonia. Reviewed, Interpreted and Dictated by Jeff Garcia III, MD Transcribed by Heraclio Stephens Authenticated by Jeff Garcia III, MD on 08/17/2021 04:34:16 PM [facility] - ECG Data Tracing #1 EKG interpreted by Ankur Staton MD: Rhythm: sinus Rate: 72 [place]: normal Ectopy: none Conduction: normal ST Segment Changes: none T Wave Changes: Nonspecific Q Waves: none No evidence of acute ischemia or injury Medical Decision Narrative: Discussed whether
--- NOTE | 2021-08-17 16:08 | XR_ITS ---
FINAL REPORT CLINICAL HISTORY: soa, chf COMPARISON: July 30, 2021 FINDINGS: The heart size is normal. The mediastinum is normal. There are persistent bibasilar opacities. There is partial improved aeration of the right lung base. There are no pleural effusions. There is no pneumothorax. There is no osseous abnormality. IMPRESSION: Persistent bibasilar opacities could represent atelectasis or pneumonia. Reviewed, Interpreted and Dictated by Jeff Garcia III, MD Transcribed by Heraclio Stephens Authenticated by Jeff Garcia III, MD on 08/17/2021 04:34:16 PM [facility]
[2021-08-17 16:12] VITALS: BP 104/64; PULSE 65; O2SAT 97
[2021-08-17 16:32] LABS: Alanine Aminotransferase 15 U/L (12-78); Albumin Level 3.2 g/dl (3.5-5.0); Albumin/Globulin Ratio 1.3 (1.1-1.8); Alkaline Phosphatase 91 U/L (38-126); Anion Gap 5.8 mEq/L (5-15); Aspartate Amino Transferase 23 U/L (17-59); Basophils % 0.5 % (0.1-2.0); Bilirubin,Total 0.5 mg/dl (0.2-1.3); Blood Urea Nitrogen 15 mg/dl (9-20); Calcium 7.6 mg/dl (8.4-10.2); Carbon Dioxide 32 mmol/L (22.0-30.0); Chloride 102 mmol/L (98-107); Creatinine Clearance Estimated 90 mL/min (50-200); Eosinophils # 0.2 K/mm3 (0.0-0.4); Estimated Glomerular Filt Rate 73 ml/min (>60); GFR (African American) 88 ML/MIN (>60); Globulin 2.5 g/dL (1.3-3.2); Glucose 126 mg/dl (74-100); Hematocrit 29.9 % (42.0-52.0); Hemoglobin 9.5 g/dL (14.1-18.0); Lymphocytes # 0.9 K/mm3 (0.7-4.5); Mean Corpuscular HGB Conc 31.8 g/dL (31.8-35.4); Mean Corpuscular Hemoglobin 31.1 pg (27.0-31.2); Mean Corpuscular Volume 97.9 fl (80-94); Mean Platelet Volume 7.2 fl (7.4-10.4); Monocytes # 0.5 K/mm3 (0.1-1.0); Monocytes % 6.8 % (1.7-9.3); Neutrophils % 78.7 % (37.0-80.0); Platelet Count 266 K/mm3 (142-424); Potassium 3.8 mmoL/L (3.5-5.1); Red Blood Count 3.06 M/mm3 (4.60-6.20); Red Cell Distribution Width 14.8 % (11.5-17.5); Sodium 136 mmol/L (136-145); Total Protein,Serum 5.7 g/dl (6.3-8.2); White Blood Count 7.6 K/mm3 (4.8-10.8)
--- NOTE | 2021-08-17 16:40 | PC.NURSE ---
Called lab to check on CBC order
[2021-08-17 16:44] LABS: NT Pro Brain Natriuretic Pep. 106 pg/mL (0-125)
[2021-08-17 16:46] LABS: Troponin I < 0.01 ng/ml (0.00-0.034)
[2021-08-17 17:30] VITALS: BP 104/61; PULSE 70; O2SAT 96
[2021-08-17 17:49] VITALS: BP 113/56; PULSE 65; RESP 16; TEMP 36.6; O2SAT 96
== END 2021-08-17 17:50 | disposition home or self-care (01) ==
PROVIDERS: Emergency Provider Emergency Medicine; PCP Nurse Practitioner Family
DX: R60.9 Edema, unspecified (principal); I48.91 Unspecified atrial fibrillation; J44.9 Chronic obstructive pulmonary disease, unspecified; E78.5 Hyperlipidemia, unspecified; I10 Essential (primary) hypertension
CPT/HCPCS: 71045; 80053; 83880; 84484; 85025; 93005; 96374; 99283

== ENCOUNTER 2021-10-04 20:15 | Emergency (ER) | payer MEDICARE, OTHER, SELFPAY ==
[2021-10-04] VITALS (9 sets, daily range): BP systolic 92–116; BP diastolic 56–75; PULSE 92–107; RESP 14–22; TEMP 36.7–36.9; O2SAT 93–97; BMI 32.8
--- NOTE | 2021-10-04 20:22 | ECG_ITS ---
APPROVED REPORT Exam: Resting ECG HR:113 bpm ECG Measurements Heart Rate 113 AXES QRSd 92 QRS 75 QT 330 T 50 QTc 397 Conclusion ATRIAL FIBRILLATION WITH RAPID VENTRICULAR RESPONSE LOW QRS VOLTAGE IN PRECORDIAL LEADS [QRS DEFLECTION < 1.0 mV IN CHEST LEADS] MINIMAL ST DEPRESSION [0.025+ mV ST DEPRESSION] ABNORMAL RHYTHM ECG UNCONFIRMED REPORT Electronically signed by : Bryn Varela MD 10/06/2021 17:35:55
--- NOTE | 2021-10-04 20:32 | XR_ITS ---
PROCEDURE INFORMATION: Exam: XR Chest Exam date and time: 10/04/2021 9:35 PM Age: 76 years old Clinical indication: Shortness of breath; Additional info: SOA TECHNIQUE: Imaging protocol: XR of the chest. Views: 1 view. COMPARISON: CT ANGIO CHEST PE PROTOCOL 10/04/2021 9:29 PM FINDINGS: Lungs: Emphysema with nodular and streaky basilar airspace opacities. Pleural spaces: No pneumothorax. Heart/Mediastinum: No cardiomegaly. Bones/joints: No acute abnormality. IMPRESSION: Emphysema with nodular and streaky basilar airspace opacities better evaluated on CTA chest from same date.
--- NOTE | 2021-10-04 20:32 | CT_ITS ---
PROCEDURE INFORMATION: Exam: CTA Chest With Contrast Exam date and time: 10/04/2021 9:29 PM Age: 76 years old Clinical indication: Shortness of breath; Additional info: SOA TECHNIQUE: Imaging protocol: Computed tomographic angiography of the chest with contrast. 3D rendering (Not supervised by radiologist): MIP and/or 3D reconstructed images were created by the technologist. Radiation optimization: All CT scans at this facility use at least one of these dose optimization techniques: automated exposure control; mA and/or kV adjustment per patient size (includes targeted exams where dose is matched to clinical indication); or iterative reconstruction. Contrast material: ISOVUE; Contrast volume: 70 ml; Contrast route: INTRAVENOUS (IV); COMPARISON: CT ANGIO CHEST PE PROTOCOL 07/30/2021 2:42 PM FINDINGS: Pulmonary arteries: Normal. No pulmonary emboli. Aorta: No aortic aneurysm. No aortic dissection. Other arteries: Calcified atherosclerosis. No aneurysm. Lungs: Emphysema with bronchial wall thickening and scattered nodular and streaky basilar airspace opacities. The largest nodule within the anterior right upper lobe measures 12 mm. Pleural spaces: No pneumothorax. No pleural effusion. Heart: No cardiomegaly. No pericardial effusion. Lymph nodes: No enlarged lymph nodes. Gallbladder and bile ducts: Post cholecystectomy change. Bones/joints: No acute fracture. Soft tissues: No significant swelling. IMPRESSION: Emphysema with bronchial wall thickening and scattered nodular and streaky basilar airspace opacities which are nonspecific but potentially infectious or inflammatory. Aspiration cannot be excluded. The largest nodule within the anterior right upper lobe measures 12 mm. For patients at high risk (history of smoking or of other known risk factors), recommend CT Chest at 3-6 months, then [address] Chest at 18-24 months. (Reference: Mann) References: Mann Renee et al. Guidelines for Management of Incidental Pulmonary Nodules Detected on CT Images: From the Fleischner Society 2017. Radiology. 2017;284(1):228-243.
--- NOTE | 2021-10-04 20:48 | PC.NURSE ---
PT GIVEN A PILLOW. STATES HIS SHORTNESS OF BREATH HAS IMPROVED. FAMILY AT BEDSIDE. WILL CONTINUE TO MONITOR.
[2021-10-04 21:02] LABS: Basophils # 0.1 K/mm3 (0-0.2); Basophils % 0.6 % (0.1-2.0); Eosinophils # 0.5 K/mm3 (0.0-0.4); Hematocrit 42.4 % (42.0-52.0); Hemoglobin 13.4 g/dL (14.1-18.0); Lymphocytes # 0.8 K/mm3 (0.7-4.5); Mean Corpuscular HGB Conc 31.5 g/dL (31.8-35.4); Mean Corpuscular Hemoglobin 28.6 pg (27.0-31.2); Mean Corpuscular Volume 90.9 fl (80-94); Mean Platelet Volume 7.5 fl (7.4-10.4); Monocytes # 0.7 K/mm3 (0.1-1.0); Monocytes % 6.8 % (1.7-9.3); Neutrophils # 8.1 K/mm3 (1.8-7.8); Neutrophils % 79.7 % (37.0-80.0); Platelet Count 292 K/mm3 (142-424); Red Blood Count 4.66 M/mm3 (4.60-6.20); Red Cell Distribution Width 16.1 % (11.5-17.5); White Blood Count 10.2 K/mm3 (4.8-10.8)
[2021-10-04 21:02] LABS: Coronavirus 19, PCR Not Detected (NotDetected); Influenza A, PCR Not Detected (NotDetected); Influenza B, PCR Not Detected (NotDetected)
[2021-10-04 21:10] LABS: Alanine Aminotransferase 26 U/L (12-78); Albumin Level 3.5 g/dl (3.5-5.0); Alkaline Phosphatase 108 U/L (38-126); Anion Gap 9.7 mEq/L (5-15); Aspartate Amino Transferase 23 U/L (17-59); Bilirubin,Direct 0.3 mg/dl (0.0-0.4); Bilirubin,Indirect 0.6 mg/dL (0.0-0.9); Bilirubin,Total 0.9 mg/dl (0.2-1.3); Bilirubin,Unconjugated 0.6 mg/dL (0.0-1.1); Blood Urea Nitrogen 23 mg/dl (9-20); Calcium 7.9 mg/dl (8.4-10.2); Carbon Dioxide 31 mmol/L (22.0-30.0); Chloride 99 mmol/L (98-107); Creatinine Clearance Estimated 79 mL/min (50-200); Estimated Glomerular Filt Rate 65 ml/min (>60); GFR (African American) 79 ML/MIN (>60); Glucose 151 mg/dl (74-100); Magnesium 2.1 mg/dl (1.6-2.3); Potassium 3.7 mmoL/L (3.5-5.1); Sodium 136 mmol/L (136-145); Total Protein,Serum 6.6 g/dl (6.3-8.2)
[2021-10-04 21:12] LABS: Lactic Acid 2.5 mmol/L (0.7-2.1)
--- NOTE | 2021-10-04 21:15 | [facility].EDSOB ---
ED Disposition Clinical Impression: Acute exacerbation of chronic obstructive airways disease A-fib Qualifiers: Atrial fibrillation type: unspecified chronic Qualified Code(s): I48.20 - Chronic atrial fibrillation, unspecified Disposition: Home, Self-Care Condition on Discharge: Good Instructions: DI for Chronic Obstructive Pulmonary Disease Additional Instructions: see pcp for follow up Referrals: Estrella Sandoval APRN [Primary Care Provider] - - Critical Care Critical Care Time: No Attestation: On 10/04/21, the high probability of a clinically significant, sudden or life threatening deterioration of the following system(s) required my full and direct attention, intervention and personal management. The time I documented below is in addition to time spent performing reported procedures but includes the following listed in this critical care notation. Medical Decision Making - Medical Records Medical records reviewed: Yes: I reviewed the patient's medical records. - Sarath Inquiry Pt receiving controlled substance: No Vital Signs: 10/04/21 20:16 10/04/21 20:34 10/04/21 20:40 Temperature 98.5 F Temperature Source Oral Pulse Rate 107 H 99 H Pulse Rate [Right Radial] 95 H Respiratory Rate 22 19 Blood Pressure 92/64 L Blood Pressure [Right Arm] 116/75 Blood Pressure Mean Blood Pressure Mean [Right Arm] 88 Blood Pressure Source Blood Pressure Source [Right Arm] Automatic Cuff Blood Pressure Position Blood Pressure Position [Right Arm] Sitting 02 Sat by Pulse Oximetry 97 94 L 97 Oxygen Delivery Method Nasal Cannula Nasal Cannula Oxygen Flow Rate (LPM) 2 3 10/04/21 21:00 10/04/21 22:00 10/04/21 22:31 Temperature Temperature Source Pulse Rate 97 H 92 H Pulse Rate [Right Radial] Respiratory Rate 15 17 Blood Pressure 97/69 L 99/64 L 108/56 L Blood Pressure [Right Arm] Blood Pressure Mean 71 68 Blood Pressure Mean [Right Arm] Blood Pressure Source Blood Pressure Source [Right Arm] Blood Pressure Position Blood Pressure Position [Right Arm] 02 Sat by Pulse Oximetry 96 97 93 L Oxygen Delivery Method Oxygen Flow Rate (LPM) 10/04/21 23:00 10/04/21 23:22 Temperature 98.1 F Temperature Source Oral Pulse Rate 102 H Pulse Rate [Right Radial] Respiratory Rate 14 Blood Pressure 93/65 L 93/65 L Blood Pressure [Right Arm] Blood Pressure Mean 78 Blood Pressure Mean [Right Arm] Blood Pressure Source Automatic Cuff Blood Pressure Source [Right Arm] Blood Pressure Position Supine Blood Pressure Position [Right Arm] 02 Sat by Pulse Oximetry Oxygen Delivery Method Nasal Cannula Oxygen Flow Rate (LPM) - Lab Data Lab results reviewed: Yes: I reviewed the patient's lab results. Lab Results 10/04/21 20:32: WBC 10.2, RBC 4.66, Hgb 13.4 L, Hct 42.4, MCV 90.9, MCH 28.6, MCHC 31.5 L, RDW 16.1, Plt Count 292, MPV 7.5, Neut % (Auto) 79.7, Lymph % (Auto) 8.0 L, [place] % (Auto) 6.8, Eos % (Auto) 5.0, Baso % (Auto) 0.6, Neut # (Auto) 8.1 H, Lymph # (Auto) 0.8, [place] # (Auto) 0.7, Eos # (Auto) 0.5 H, Baso # (Auto) 0.1, ESR 56 H 10/04/21 20:32: Sodium 136, Potassium 3.7, Chloride 99, Carbon Dioxide 31 H, Anion Gap 9.7, BUN 23 H, Creatinine 1.10, Estimated Creat Clear 79, Estimated GFR 65, Est GFR ( Amer) 79, Glucose 151 H, Calcium 7.9 L, Magnesium 2.1, Total Bilirubin 0.9, Direct Bilirubin 0.3, Conjugated Bilirubin 0.0, Indirect Bilirubin 0.6, Unconjugated Bilirubin 0.6, AST 23, ALT 26, Alkaline Phosphatase 108, Troponin I < 0.01, C-Reactive Protein 55.5 H, Total Protein 6.6, Albumin 3.5, Procalcitonin 0.084, TSH 1.05, Thyroxine (T4) 9.1 10/04/21 20:32: PT 11.2, INR 0.99 10/04/21 20:32: Lactate 2.5 H 10/04/21 20:32: NT-Pro-B Natriuret Pep 32.4 10/04/21 20:51: SARS-CoV-2 (PCR) Not detected, Influenza A Untype (PCR) Not detected, Influenza Type B (PCR) Not detected 10/04/21 23:15: Troponin I < 0.01 Result diagrams: 10/04/21 20:3
[2021-10-04 21:16] LABS: C-Reactive Protein 55.5 mg/L (0-4)
[2021-10-04 21:20] LABS: INR 0.99 (0.9-1.1); Prothrombin Time 11.2 seconds (10.1-12.5)
[2021-10-04 21:30] LABS: Procalcitonin 0.084 ng/mL (0.0-2.0); T4 (Thyroxine) 9.1 ug/dl (5.53-11.0)
[2021-10-04 21:35] LABS: Troponin I < 0.01 ng/ml (0.00-0.034)
[2021-10-04 21:38] LABS: Erythrocyte Sedimentation Rate 56 mm/hr (0-20)
[2021-10-04 21:44] LABS: Thyroid Stimulating Hormone 1.05 uIU/mL (0.465-4.68)
[2021-10-04 21:51] LABS: NT Pro Brain Natriuretic Pep. 32.4 pg/mL (0-125)
--- NOTE | 2021-10-04 22:30 | PC.NURSE ---
Family and pt updated on POC and informed we are waiting on official reads from radiology.
--- NOTE | 2021-10-04 22:31 | PC.NURSE ---
PT REPORTS THAT HE TOOK ALL OF HIS HOME MEDICATIONS PRIOR TO ARRIVAL TO THE HOSPITAL. PT REPORTS THAT S/S HAVE IMPROVED. FAMILY REMAINS AT BEDSIDE.
--- NOTE | 2021-10-04 22:32 | PC.NURSE ---
Pt sitting up in bed eating
[2021-10-04 23:53] LABS: Troponin I < 0.01 ng/ml (0.00-0.034)
== END 2021-10-05 00:11 | disposition home or self-care (01) ==
PROVIDERS: Emergency Provider Emergency Medicine; PCP Nurse Practitioner Family
DX: J44.0 Chronic obstructive pulmonary disease with (acute) lower respiratory infection (principal); I48.20 Chronic atrial fibrillation, unspecified; E78.5 Hyperlipidemia, unspecified; I10 Essential (primary) hypertension; Z87.891 Personal history of nicotine dependence
CPT/HCPCS: 71045; 71275; 80048; 80076; 83605; 83735; 83880; 84145; 84436; 84443; 84484; 85025; 85610; 85651; 86140; 87040; 93005; 96365; 96375; 99284; C9803; Q9967; U0003; U0005